=== PATIENT | female | born 1990 | race African-American/Black ===

== ENCOUNTER 2017-12-02 08:19 | Emergency (ER) | payer SELFPAY ==
[~2017-12-02] VITALS: Ht 157.5 cm; Wt 68.0 kg
[2017-12-02 09:43] VITALS: BP 125/85
== END 2017-12-02 11:19 | disposition home or self-care (01) ==
LOC: ER 08:19
DX: O26.891 Other specified pregnancy related conditions, first trimester (principal); R10.9 Unspecified abdominal pain; Z3A.10 10 weeks gestation of pregnancy
CPT/HCPCS: 36415; 76801; 81002; 84702

== ENCOUNTER 2018-03-28 12:25 | Observation (INO) | payer MEDICAID ==
[2018-03-28] MEDS ORDERED: PREN-96 PO (15:04)
== END 2018-03-28 14:35 | disposition home or self-care (01) | DRG 566 ==
LOC: LDRP 12:25
PROVIDERS: ADMIT Specialist; ATTEND Specialist
DX: O36.8120 Decreased fetal movements, second trimester, not applicable or unspecified (principal); Z3A.24 24 weeks gestation of pregnancy
CPT/HCPCS: 59025; 81002; G0378